=== PATIENT | female | born 1960 | race Caucasian/White ===

== ENCOUNTER 2020-03-20 20:58 | Emergency (ER) | payer BC ==
[~2020-03-20] VITALS: Ht 167.6 cm; Wt 66.7 kg
[2020-03-20 21:04] VITALS: Ht 167.6 cm; Wt 66.7 kg
[2020-03-20 21:40] LABS: BASOPHIL % 0.6 % (0-2); PLATELET COUNT 268 x10^3mcL (130-400); RED CELL DISTRIBUTION WIDTH 13.6 % (11.5-14.5)
[2020-03-20 21:58] LABS: CALCIUM 9.1 mg/dL (8.5-10.1); CARBON DIOXIDE 31.8 mmol/L (21-32); CHLORIDE SERUM 102 mmol/L (98-107); CREATININE SERUM 0.8 mg/dL (0.6-1.0); GFR1 > 60 mL/min; GLUCOSE SERUM 100 mg/dL (74-106); POTASSIUM SERUM 4.1 mmol/L (3.5-5.1); SODIUM SERUM 137 mmol/L (136-145)
[2020-03-20 22:00] LABS: ALKALINE PHOSPHATASE 75 U/L (46-116); ALT/SGPT 22 U/L (14-59); AST/SGOT 24 U/L (15-37); BILIRUBIN TOTAL 0.5 mg/dL (0.20-1.00); TOTAL PROTEIN, SERUM 7.5 g/dL (6.4-8.2)
[2020-03-20 23:00] VITALS: BP 132/77
== END 2020-03-20 22:34 | disposition home or self-care (01) ==
LOC: ED 20:58
DX: R07.89 Other chest pain (principal); E66.9 Obesity, unspecified; Z88.5 Allergy status to narcotic agent
CPT/HCPCS: Q0092